=== PATIENT | male | born 1935 ===

== ENCOUNTER 2022-02-23 13:44 | Outpatient (REF) | payer MEDICAID, SELFPAY | END 2022-02-23 13:45 | disposition home or self-care (01) | LOC: HO.SH 13:44 | PROVIDERS: Visit Provider Internal Medicine | DX: Z01.118 Encounter for examination of ears and hearing with other abnormal findings (principal); H90.3 Sensorineural hearing loss, bilateral | CPT/HCPCS: 92553; 92555; 92567 ==